=== PATIENT | female | born 1965 | race Caucasian/White ===

== ENCOUNTER 2019-11-10 13:08 | Emergency (ER) | payer BC ==
[~2019-11-10] VITALS: Ht 170.2 cm; Wt 144.0 kg
[2019-11-10 13:09] VITALS: BP 195/97
[2019-11-10] MEDS ORDERED: SODIUM CHLORIDE FLUSH 10ML SYR IVF ONE (14:30)
--- NOTE | 2019-11-10 14:51 | NUR ---
PT IN BED, IV STARTED. DENIES ANY NEEDS.
[2019-11-10] MEDS ORDERED: OMNIPAQUE 350 MG/ML, 75ML BOTTLE ONE (16:26)
== END 2019-11-10 16:55 | disposition home or self-care (01) ==
LOC: ED 14:38
DX: R22.0 Localized swelling, mass and lump, head (principal); H92.01 Otalgia, right ear; I10 Essential (primary) hypertension; G43.909 Migraine, unspecified, not intractable, without status migrainosus
CPT/HCPCS: 70487; 99285; Q9967